=== PATIENT | male | born 1980 | race Asian ===

== ENCOUNTER 2017-07-22 23:11 | Emergency (ER) | payer BC ==
[2017-07-23] MEDS ORDERED: TETANUS/DIPHTHERIA/PERTUSSIS 0.5 ML SYRINGE IM ONE ×2 (01:14→01:35)
--- NOTE | 2017-07-23 02:04 | ED Physician Documentation ---
PD HPI UPPER EXT INJURY - Stated complaint Stated Complaint: RT THUMB INJURY - Chief complaint Chief Complaint: General - History obtained from History obtained from: Patient - History of Present Illness Location: Left, Finger Type of injury: Laceration Where injury occurred: Home Timing - onset: How many minutes ago (30) Timing - details: Abrupt onset Worsened by: Moving, Palpating Associated symptoms: No: Weakness, Numbness Contributing factors: No: Anticoagulated Similar symptoms before: Has not had sx before - Additonal information Additional information: Patient is a 36 year old male with no significant history who is presenting to the emergency department for an avulsed thumb nail. Patient states that he was opening a bag of ice and the metal piece slid under his nail lifting part of it up. Review of Systems Constitutional: denies: Fever, Myalgias Eyes: reports: Reviewed and negative Ears: reports: Reviewed and negative Throat: reports: Reviewed and negative Cardiac: denies: Chest pain / pressure, Palpitations GI: denies: Nausea, Vomiting Skin: reports: Lesions, Laceration (s) Musculoskeletal: reports: Extremity pain Neurologic: denies: Generalized weakness, Focal weakness, Numbness Endocrine: denies: Easy bruising / bleeding Immunocompromised: denies: Immunocompromised PD PAST MEDICAL HISTORY - Past Medical History Past Medical History: No - Past Surgical History Past Surgical History: No - Allergies Allergies/Adverse Reactions: Allergies Allergy/AdvReac Type Severity Reaction Status Date / Time No Known Drug Allergies Allergy Verified 07/22/17 23:23 - Social History Does the pt smoke?: No Smoking Status: Never smoker Does the pt drink ETOH?: No Does the pt have substance abuse?: No - Immunizations Immunizations are current?: Yes PD ED PE NORMAL - General General: Alert and oriented X 3, No acute distress - HEENT HEENT: Atraumatic, PERRL - Neck Neck: Supple, no meningeal sign - Cardiac Cardiac: RRR, No murmur - Respiratory Respiratory: No respiratory distress - Abdomen Abdomen: Non distended - Derm Derm: Normal color - Neuro Neuro: Alert and oriented X 3, No motor deficit, No sensory deficit, Normal speech - Psych Psych: Normal mood, Normal affect PD ED PE EXPANDED - Extremities Extremities: Right finger(s) (partial avulstion of right thumb nail, no active bleeding, no large laceration) Results - Vitals Vitals: Vital Signs - 24 hr 07/22/17 07/23/17 23:22 02:32 Temperature 36.4 C L Heart Rate 77 78 Respiratory 18 18 Rate Blood Pressure 132/76 H O2 Saturation 100 100 Oxygen O2 Source Room air PD MEDICAL DECISION MAKING - ED course Complexity details: reviewed old records, re-evaluated patient, considered differential, d/w patient ED course: Patient was seen and examined at bedside. Patient's wound was soaked in water and chlorhexidine. Patient had no repairable laceration. patient was treated with tetanus shot. Patient required no further work up and was stable for discharge with outpatient follow up. Departure - Departure Disposition: 01 Home, Self Care Clinical Impression: Finger laceration Condition: Good Instructions: ED Laceration Hand Follow-Up: primary, care provider [Other] Comments: You will need to keep your finger clean and dry. You can apply topical antibiotic as needed. Your thumb nail may fall off, but itis ok. You should monitor for signs of infection. You can take motrin or tylenol and apply ice as needed for pain. Discharge Date/Time: 07/23/17 02:33
[2017-07-23 02:34] VITALS: BP 132/76
== END 2017-07-23 02:33 | disposition home or self-care (01) ==
LOC: ED 23:11
DX: S61.011A Laceration without foreign body of right thumb without damage to nail, initial encounter (principal); W45.8XXA Other foreign body or object entering through skin, initial encounter; Y93.89 Activity, other specified; Y92.009 Unspecified place in unspecified non-institutional (private) residence as the place of occurrence of the external cause; Z23 Encounter for immunization
CPT/HCPCS: 90471; 99283